=== PATIENT | male | born 1965 | race Caucasian/White ===

== ENCOUNTER 2018-09-16 14:22 | Emergency (ER) | payer OTHER ==
[2018-09-16 14:29] VITALS: RESP 18
[2018-09-16] MEDS ORDERED: HYDROcodone/APAP 5-325MG 1 EACH TAB PO STA (15:16)
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
--- NOTE | 2018-09-16 16:06 | US ---
EXAMINATION TYPE: US venous doppler duplex LE LT DATE OF EXAM: 09/16/2018 3:51 PM COMPARISON: NONE CLINICAL HISTORY: 53-year-old male Pain. Left leg swelling and pain SIDE PERFORMED: Left TECHNIQUE: The lower extremity deep venous system is examined utilizing real time linear array sonog violet with graded compression, doppler sonography and color-flow sonography. FINDINGS: VESSELS IMAGED: External Iliac Vein (EIV) Common Femoral Vein Deep Femoral Vein Greater Saphenous Vein * Femoral Vein Popliteal Vein Small Saphenous Vein * Proximal Calf Veins Posterior tibial veins (* superficial vessels) Patient states history of DVT, has factor five and is on thinners. Left Leg: Negative for DVT IMPRESSION: No evidence for DVT within the left lower extremity imaged down into the posterior tibial veins.
[2018-09-16 16:46] VITALS: BP 139/84; PULSE 100; TEMP 97
== END 2018-09-16 16:44 | disposition home or self-care (01) ==
LOC: EC 14:22
DX: R60.0 Localized edema (principal); R00.0 Tachycardia, unspecified; M79.605 Pain in left leg; F17.200 Nicotine dependence, unspecified, uncomplicated; Z88.0 Allergy status to penicillin; Z88.1 Allergy status to other antibiotic agents; Z88.4 Allergy status to anesthetic agent; Z88.8 Allergy status to other drugs, medicaments and biological substances; Z91.012 Allergy to eggs; Z91.013 Allergy to seafood; Z91.048 Other nonmedicinal substance allergy status; Z79.01 Long term (current) use of anticoagulants; Z79.02 Long term (current) use of antithrombotics/antiplatelets; Z79.82 Long term (current) use of aspirin; Z79.891 Long term (current) use of opiate analgesic; Z79.899 Other long term (current) drug therapy; Z86.711 Personal history of pulmonary embolism; Z86.718 Personal history of other venous thrombosis and embolism; Z95.1 Presence of aortocoronary bypass graft
CPT/HCPCS: 99284

== ENCOUNTER 2018-09-22 17:44 | Emergency (ER) | payer OTHER ==
[2018-09-22 17:49] VITALS: TEMP 98.2
[2018-09-22] MEDS ORDERED: LORazepam 2 MG/ML INJ IV STA (18:02)
[2018-09-22] MEDS ORDERED: SODIUM CHLORIDE 0.9% 1,000 ML IV STA (18:02)
[2018-09-22] MEDS ORDERED: methylPREDNISolone SOD SUCCI 125 MG/2 ML VIAL IV STA (18:02)
[2018-09-22] MEDS ORDERED: FAMOTIDINE 20 MG/2 ML VIAL IV STA (18:02)
[2018-09-22] MEDS ORDERED: diphenhydrAMINE 50 MG/ML 1 ML VIAL IVP STA (18:02)
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
[2018-09-22 20:19] VITALS: RESP 18
[2018-09-22 20:23] VITALS: BP 133/87; PULSE 98
== END 2018-09-22 21:00 | disposition home or self-care (01) ==
LOC: EC 17:44
DX: R07.9 Chest pain, unspecified (principal); R60.0 Localized edema; F17.200 Nicotine dependence, unspecified, uncomplicated; Z79.01 Long term (current) use of anticoagulants; Z79.02 Long term (current) use of antithrombotics/antiplatelets; Z79.82 Long term (current) use of aspirin; Z79.899 Other long term (current) drug therapy; Z88.1 Allergy status to other antibiotic agents; Z88.4 Allergy status to anesthetic agent; Z88.0 Allergy status to penicillin; Z91.041 Radiographic dye allergy status; Z88.8 Allergy status to other drugs, medicaments and biological substances; Z91.012 Allergy to eggs; Z91.013 Allergy to seafood; Z95.1 Presence of aortocoronary bypass graft; Z95.5 Presence of coronary angioplasty implant and graft
CPT/HCPCS: 93005; 99284